=== PATIENT | male | born 1990 | race Caucasian/White ===

== ENCOUNTER 2016-08-04 09:12 | Emergency (ER) | payer SELFPAY ==
[~2016-08-04] VITALS: Wt 92.1 kg
[~2016-08-04 09:12] MED LIST: CIPROFLOXACIN500 MG PO; CYCLOBENZAPRINE10 MG PO; MOTRIN800 MG PO; Motrin,Rufen800 MG PO; OMEPRAZOLE D/R20 MG PO; Zofran4 MG PO
[2016-08-04 09:19] VITALS: BP 116/70
[2016-08-04] MEDS ORDERED: ZOFRAN ODT4 MG SL (09:35)
[2016-08-04] MEDS ORDERED: FLONASE ALLERG9.9 ML NAS (09:37)
[2016-08-04] MEDS ORDERED: CLARITIN10 MG PO (09:38)
== END 2016-08-04 09:51 | disposition home or self-care (01) ==
LOC: ED 09:12
DX: B34.9 Viral infection, unspecified (principal)

== ENCOUNTER 2018-11-16 07:06 | Emergency (ER) | payer SELFPAY ==
[~2018-11-16] VITALS: Ht 177.8 cm; Wt 97.5 kg
[2018-11-16 07:06] VITALS: BP 115/46
[~2018-11-16 07:06] MED LIST changes: +CLARITIN10 MG PO; +FLONASE ALLERG9.9 ML NAS; +IMODIUM A-D2 M2 PO; +ZOFRAN ODT4 MG SL; +ZOFRAN4 MG PO
[2018-11-16] MEDS ORDERED: Motrin,Rufen800 MG PO (07:31)
[2018-11-16] MEDS ORDERED: SEPTDS PO (07:31)
== END 2018-11-16 07:40 | disposition home or self-care (01) ==
LOC: ED 07:06
DX: L03.114 Cellulitis of left upper limb (principal); Z79.899 Other long term (current) drug therapy

== ENCOUNTER 2019-02-23 10:17 | Emergency (ER) | payer SELFPAY ==
[~2019-02-23] VITALS: Ht 172.7 cm; Wt 94.3 kg
[~2019-02-23 10:17] MED LIST changes: +SEPTDS PO
[2019-02-23 10:19] VITALS: BP 116/35
[2019-02-23] MEDS ORDERED: AMOXICILLIN500 M2 PO (11:31)
[2019-02-23] MEDS ORDERED: ZYRTEC10 MG PO (11:31)
== END 2019-02-23 11:38 | disposition home or self-care (01) ==
LOC: ED 10:17
DX: J20.9 Acute bronchitis, unspecified (principal)

== ENCOUNTER 2020-04-07 09:23 | Emergency (ER) | payer SELFPAY ==
[~2020-04-07] VITALS: Wt 91.2 kg
[~2020-04-07 09:23] MED LIST changes: +AMOXICILLIN500 M2 PO; +ZYRTEC10 MG PO
[2020-04-07 09:35] VITALS: BP 113/61
[2020-04-07 10:05] LABS: BASO % 0.5 % (0.0-1.0); EOS # 0.1 10*3/uL (0.0-0.4); EOS % 1.2 % (1.0-4.0); HEMATOCRIT 43.6 % (42.0-52.0); LYMPH # 2.2 10*3/uL (1.3-4.4); LYMPH % 27.1 % (27.0-41.0); MEAN CELL VOLUME 83.2 fl (80.0-94.0); MEAN CORPUSCULAR HGB 28.4 pg (27.0-31.0); MEAN CORPUSCULAR HGB CONC 34.2 g/dl (33.0-37.0); MONO # 0.7 10*3/uL (0.1-1.0); MONO % 8.3 % (3.0-9.0); NEUT # 5.1 10*3/uL (2.3-7.9); NEUT % 62.5 % (47.0-73.0); PLATELET COUNT AUTOMATED 224 10*3/uL (130-400); RED BLOOD COUNT 5.24 10*6/uL (4.50-5.90); RED CELL DISTRI WIDTH 13.1 % (0-14.5); WHITE BLOOD COUNT 8.2 10*3/uL (4.8-10.8)
[2020-04-07 10:31] LABS: BILIRUBIN Negative (Negative); BLOOD Negative (Negative); CLARITY Clear (Clear); COLOR Yellow (Yellow); GLUCOSE Negative (Negative); KETONE Trace (Negative); LEUKO ESTERASE Negative (Negative); NITRITE Negative (Negative); SPECIFIC GRAVITY 1.025 (1.001-1.030); UROBILINOGEN 0.2 E.U./dl (0.0-1.0)
[2020-04-07 10:35] LABS: URINE AMPHETAMINES < 1000 (1000ng/ml); URINE BARBITURATES < 200 (200ng/ml); URINE BENZODIAZEPINES < 200 (200ng/ml); URINE CANNABINOIDS (THC) < 50 (50ng/ml); URINE COCAINE < 300 (300ng/ml); URINE METHADONE < 300 (300ng/ml); URINE OPIATES < 300 (300ng/ml)
[2020-04-07 10:36] LABS: URINE PHENCYCLIDINE < 25 (25ng/ml)
[2020-04-07 10:59] LABS: EPITHELIAL CELLS 0-2
[2020-04-07 11:00] LABS: ALBUMIN 3.6 gm/dl (3.1-4.5); ALKALINE PHOSPHATASE 124 U/L (45-117); BUN 15 mg/dl (7-24); CHLORIDE 110 mmol/L (98-107); POTASSIUM 3.9 mmol/L (3.5-5.1); SGOT/AST 19 IU/L (3-35); SGPT/ALT 27 U/L (12-78); SODIUM 140 mmol/L (136-145); TOTAL PROTEIN 6.7 gm/dL (6.4-8.2)
== END 2020-04-07 16:39 | disposition home or self-care (01) ==
LOC: ED 09:23
PROVIDERS: Physician Assistant
DX: Z73.3 Stress, not elsewhere classified (principal); Z79.899 Other long term (current) drug therapy

== ENCOUNTER 2020-09-21 07:34 | Emergency (ER) | payer SELFPAY ==
[~2020-09-21] VITALS: Wt 90.7 kg
[2020-09-21 07:42] VITALS: BP 115/53
[2020-09-21] MEDS ORDERED: PREDNISONE10 MG PO (07:55)
== END 2020-09-21 08:15 | disposition home or self-care (01) ==
LOC: ED 07:34
DX: L23.7 Allergic contact dermatitis due to plants, except food (principal)

== ENCOUNTER 2020-10-14 10:10 | Emergency (ER) | payer SELFPAY ==
[~2020-10-14] VITALS: Ht 175.2 cm; Wt 90.7 kg
[~2020-10-14 10:10] MED LIST changes: +PREDNISONE10 MG PO
[2020-10-14 10:14] VITALS: BP 114/56
[2020-10-14] MEDS ORDERED: PREDNISONE10 MG PO (10:54)
== END 2020-10-14 11:06 | disposition home or self-care (01) ==
LOC: ED 10:10
DX: L23.7 Allergic contact dermatitis due to plants, except food (principal); Z79.899 Other long term (current) drug therapy

== ENCOUNTER 2020-11-21 18:16 | Emergency (ER) | payer SELFPAY ==
[2020-11-21 18:24] VITALS: BP 132/67
== END 2020-11-21 19:00 | disposition left against medical advice (07) ==
LOC: ED 18:16
DX: R21 Rash and other nonspecific skin eruption (principal); L29.9 Pruritus, unspecified; Z53.21 Procedure and treatment not carried out due to patient leaving prior to being seen by health care provider

== ENCOUNTER 2020-11-27 12:49 | Emergency (ER) | payer SELFPAY ==
[~2020-11-27] VITALS: Ht 177.8 cm; Wt 90.7 kg
[2020-11-27 12:56] VITALS: BP 112/64
[2020-11-27] MEDS ORDERED: PREDNISONE10 MG PO (13:08)
== END 2020-11-27 13:51 | disposition home or self-care (01) ==
LOC: ED 12:49
DX: L23.7 Allergic contact dermatitis due to plants, except food (principal)

== ENCOUNTER 2020-12-18 22:34 | Emergency (ER) | payer SELFPAY ==
[~2020-12-18] VITALS: Ht 177.8 cm; Wt 89.8 kg
[2020-12-18 23:32] LABS: BILIRUBIN Negative (Negative); BLOOD Negative (Negative); CLARITY Clear (Clear); COLOR Yellow (Yellow); GLUCOSE Negative (Negative); KETONE Trace (Negative); LEUKO ESTERASE Negative (Negative); NITRITE Negative (Negative); PH 5.5 (4.5-8.0); SPECIFIC GRAVITY >= 1.030 (1.001-1.030); UROBILINOGEN 0.2 E.U./dl (0.0-1.0)
[2020-12-19 00:08] LABS: RBC 0-2 rbc/hpf (0-2); WBC 0-2 wbc/hpf (0-5)
[2020-12-19 01:24] LABS: BASO # 0.1 10*3/uL (0.0-0.1); BASO % 0.7 % (0.0-1.0); EOS # 0.2 10*3/uL (0.0-0.4); EOS % 2.2 % (1.0-4.0); HEMATOCRIT 42.5 % (42.0-52.0); LYMPH # 2.6 10*3/uL (1.3-4.4); LYMPH % 28.6 % (27.0-41.0); MEAN CELL VOLUME 85.9 fl (80.0-94.0); MEAN CORPUSCULAR HGB 28.7 pg (27.0-31.0); MEAN CORPUSCULAR HGB CONC 33.4 g/dl (33.0-37.0); MEAN PLATELET VOLUME 10.3 fl (9.6-12.3); MONO # 0.8 10*3/uL (0.1-1.0); NEUT # 5.4 10*3/uL (2.3-7.9); NEUT % 58.8 % (47.0-73.0); PLATELET COUNT AUTOMATED 219 10*3/uL (130-400); RED BLOOD COUNT 4.95 10*6/uL (4.50-5.90); RED CELL DISTRI WIDTH 12.9 % (0-14.5); WHITE BLOOD COUNT 9.2 10*3/uL (4.8-10.8)
[2020-12-19 01:39] LABS: ALBUMIN 3.3 gm/dl (3.1-4.5); ALKALINE PHOSPHATASE 86 U/L (45-117); BUN 24 mg/dl (7-24); CHLORIDE 107 mmol/L (98-107); CREATININE 0.99 mg/dL (0.70-1.30); LIPASE 86 U/L (73-393); POTASSIUM 3.7 mmol/L (3.5-5.1); SGOT/AST 13 IU/L (3-35); SGPT/ALT 26 U/L (12-78); SODIUM 139 mmol/L (136-145); TOTAL PROTEIN 6.8 gm/dL (6.4-8.2)
[2020-12-19 02:50] VITALS: BP 117/58
== END 2020-12-19 02:54 | disposition home or self-care (01) ==
LOC: ED 22:34
PROVIDERS: Emergency Medicine
DX: K59.00 Constipation, unspecified (principal)

== ENCOUNTER 2023-07-28 07:07 | Emergency (ER) | payer SELFPAY ==
[~2023-07-28] VITALS: Ht 177.8 cm; Wt 87.5 kg
[2023-07-28 07:17] VITALS: BP 114/66
[2023-07-28] MEDS ORDERED: AVPAK AZITHROM250 M1 PO (08:55)
== END 2023-07-28 09:00 | disposition home or self-care (01) ==
LOC: ED 07:07
DX: J40 Bronchitis, not specified as acute or chronic (principal); Z20.822 Contact with and (suspected) exposure to COVID-19

== ENCOUNTER 2023-09-24 11:38 | Emergency (ER) | payer SELFPAY ==
[~2023-09-24] VITALS: Ht 177.8 cm; Wt 86.2 kg
[~2023-09-24 11:38] MED LIST changes: +AVPAK AZITHROM250 M1 PO
[2023-09-24 11:50] VITALS: BP 140/83
== END 2023-09-24 13:58 | disposition home or self-care (01) ==
LOC: ED 11:38
DX: S16.1XXA Strain of muscle, fascia and tendon at neck level, initial encounter (principal); W01.0XXA Fall on same level from slipping, tripping and stumbling without subsequent striking against object, initial encounter; Y93.B9 Activity, other involving muscle strengthening exercises; Y92.009 Unspecified place in unspecified non-institutional (private) residence as the place of occurrence of the external cause; Y99.8 Other external cause status

== ENCOUNTER 2023-11-20 09:38 | Emergency (ER) | payer SELFPAY ==
[~2023-11-20] VITALS: Ht 177.8 cm; Wt 84.8 kg
[2023-11-20 09:56] VITALS: BP 125/48
[2023-11-20] MEDS ORDERED: Ondansetron Hydrochloride 4 MG/2 ML VIAL IV ONE (10:05)
[2023-11-20] MEDS ORDERED: SODIUM CHLORIDE 0.9% 1,000 ML IV ONE (10:05)
[2023-11-20 10:28] LABS: BASO % 0.5 % (0.0-1.0); EOS # 0.1 10*3/uL (0.0-0.4); EOS % 1.2 % (1.0-4.0); HEMATOCRIT 45.4 % (42.0-52.0); LYMPH # 1.4 10*3/uL (1.3-4.4); LYMPH % 24.6 % (27.0-41.0); MEAN CELL VOLUME 89.2 fl (80.0-94.0); MEAN CORPUSCULAR HGB 29.3 pg (27.0-31.0); MEAN CORPUSCULAR HGB CONC 32.8 g/dl (33.0-37.0); MEAN PLATELET VOLUME 11.2 fl (9.6-12.3); MONO # 0.6 10*3/uL (0.1-1.0); NEUT # 3.7 10*3/uL (2.3-7.9); NEUT % 63.4 % (47.0-73.0); PLATELET COUNT AUTOMATED 207 10*3/uL (130-400); RED BLOOD COUNT 5.09 10*6/uL (4.50-5.90); WHITE BLOOD COUNT 5.8 10*3/uL (4.8-10.8)
[2023-11-20 11:29] LABS: ALKALINE PHOSPHATASE 111 U/L (46-116); BUN 18 mg/dl (9-23); CHLORIDE 110 mmol/L (98-107); LIPASE 30 U/L (12-53); POTASSIUM 4.1 mmol/L (3.4-5.1); SGPT/ALT 17 U/L (5-49); TOTAL PROTEIN 6.2 gm/dL (6.0-8.0)
[2023-11-20] MEDS ORDERED: CYCLOBENZAPRINE5 M3 PO (12:03)
[2023-11-20] MEDS ORDERED: MEDROL DOSEPAK4 MG PO (12:03)
== END 2023-11-20 12:41 | disposition home or self-care (01) ==
LOC: ED 09:38
PROVIDERS: Internal Medicine
DX: S16.1XXD Strain of muscle, fascia and tendon at neck level, subsequent encounter (principal); W19.XXXD Unspecified fall, subsequent encounter; R51.9 Headache, unspecified

== ENCOUNTER → 2023-12-19 | Outpatient (CLI) | payer SELFPAY ==
[~2023-12-19] MED LIST changes: +CYCLOBENZAPRINE5 M3 PO; +MEDROL DOSEPAK4 MG PO
[2023-12-20 09:08] LABS: HEPATITIS B SURFACE AB Non Reactive (.); HEPATITIS Be ANTIGEN Negative (Negative)
== END | disposition home or self-care (01) ==
LOC: LAB 15:02
PROVIDERS: ATTEND Family Medicine
DX: Z00.00 Encounter for general adult medical examination without abnormal findings (principal)

== ENCOUNTER 2024-01-29 08:46 | Emergency (ER) | payer SELFPAY ==
[~2024-01-29] VITALS: Ht 180.3 cm; Wt 86.2 kg
[2024-01-29 09:10] VITALS: BP 110/52
[2024-01-29] MEDS ORDERED: MELOXICAM15 MG PO (12:05)
== END 2024-01-29 12:11 | disposition home or self-care (01) ==
LOC: ED 08:46
DX: S60.021A Contusion of right index finger without damage to nail, initial encounter (principal); W23.0XXA Caught, crushed, jammed, or pinched between moving objects, initial encounter; Y93.89 Activity, other specified; Y92.89 Other specified places as the place of occurrence of the external cause; Y99.8 Other external cause status

== ENCOUNTER 2024-07-11 10:25 | Emergency (ER) | payer SELFPAY ==
[~2024-07-11] VITALS: Ht 180.3 cm; Wt 87.5 kg
[~2024-07-11 10:25] MED LIST changes: +MELOXICAM15 MG PO
[2024-07-11 10:36] VITALS: BP 115/60
[2024-07-11] MEDS ORDERED: Acetaminophen/Oxycodone 5 MG/325 MG TABLET PO ONE (10:45)
[2024-07-11] MEDS ORDERED: CYCLOBENZAPRINE10 MG PO (10:54)
[2024-07-11] MEDS ORDERED: MELOXICAM15 MG PO (10:54)
== END 2024-07-11 11:26 | disposition home or self-care (01) ==
LOC: ED 10:25
DX: S46.312A Strain of muscle, fascia and tendon of triceps, left arm, initial encounter (principal); X50.1XXA Overexertion from prolonged static or awkward postures, initial encounter; Y93.B2 Activity, push-ups, pull-ups, sit-ups; Y92.39 Other specified sports and athletic area as the place of occurrence of the external cause; Y99.8 Other external cause status

== ENCOUNTER → 2024-07-16 | Outpatient (CLI) | payer SELFPAY ==
[2024-07-17 07:06] LABS: HEP B SURFACE Ab, Qual Non Reactive (.); HEPATITIS Be ANTIGEN Negative (Negative)
== END | disposition home or self-care (01) ==
LOC: LAB 12:25
PROVIDERS: ATTEND Family Medicine
DX: Z00.00 Encounter for general adult medical examination without abnormal findings (principal); Z72.51 High risk heterosexual behavior